=== PATIENT | female | born 1995 | race Caucasian/White ===

== ENCOUNTER 2017-08-05 02:20 | Emergency (ER) | payer OTHER ==
[~2017-08-05] VITALS: Ht 162.6 cm; Wt 61.0 kg
[2017-08-05 02:25] VITALS: Ht 162.6 cm; Wt 61.0 kg
[2017-08-05] MEDS ORDERED: CEPHALEXIN 500 MG CAP PO STA (02:51)
[2017-08-05] MEDS ORDERED: HYDROCODONE/APAP (5/325) TAB PO STA (02:51)
[2017-08-05] MEDS ORDERED: TRIMETHOPRIM/SULFAMETHOX (DS) TAB PO STA (02:51)
[2017-08-05] MEDS ORDERED: CEPH-443 PO (02:53)
[2017-08-05] MEDS ORDERED: ACET325T33 PO (02:53)
[2017-08-05] MEDS ORDERED: SULF1TAB31 PO (02:53)
--- NOTE | 2017-08-05 03:08 | ERD ---
ER Documentation Chief Complaint Date/Time DATE: 08/05/17 TIME: 03:03 Chief Complaint facial abscess x 2 days HPI 22-year-old homeless female presents with a painful lesion on her right mandibular region for the past 2 days status post skin popping. States moderate in severity. Denies fever ROS All systems reviewed and are negative except as per history of present illness. Medications Home Meds Active Scripts Acetaminophen* (Tylenol*) 325 Mg Tablet, 2 TAB PO Q4 Y for PAIN AND OR ELEVATED TEMP, #30 TAB Prov:KRISTA ORR PA-C 08/05/17 Sulfamethoxazole/Trimethoprim* (Bactrim Ds* Tablet) 1 Each Tablet, 1 TAB PO BID , #20 TAB Prov:KRISTA ORR PA-C 08/05/17 Cephalexin* (Keflex*) 500 Mg Capsule, 500 MG PO QID for 10 Days, CAP Prov:KRISTA ORR PA-C 08/05/17 Allergies Allergies: Coded Allergies: No Known Allergy (Unverified , 08/05/17) PMhx/Soc Medical and Surgical Hx: pt denies Medical Hx, pt denies Surgical Hx History of Surgery: No Anesthesia Reaction: No Hx Neurological Disorder: No Hx Respiratory Disorders: No Hx Cardiac Disorders: No Hx Psychiatric Problems: No Hx Miscellaneous Medical Probl: No Hx Alcohol Use: No Hx Substance Use: Yes (heroin) Hx Tobacco Use: Yes Smoking Status: Current every day smoker Physical Exam Vitals Vital Signs Date Time Temp Pulse Resp B/P Pulse Ox O2 Delivery O2 Flow Rate FiO2 08/05/17 02:25 98.8 99 20 144/79 98 Physical Exam Const: Well-developed well-nourished no acute distress Head: Atraumatic Eyes: Normal Conjunctiva ENT: Normal External Ears, Nose and Mouth. Neck: Full range of motion..~ No meningismus. Resp: Clear to auscultation bilaterally Cardio: Regular rate and rhythm, no murmurs Abd: Soft, non tender, non distended. Normal bowel sounds Skin: 2x2cm granulated healing ulcer on right mandibular region Back: No midline or flank tenderness Ext: No cyanosis, or edema Neur: Awake and alert Psych: Normal Mood and Affect Results 24 hrs Current Medications Medications (Trade) Dose Ordered Sig/Angela Route PRN Reason Start Time Stop Time Status Last Admin Dose Admin Cephalexin (Keflex) 500 mg ONCE STAT PO 08/05/17 02:51 08/05/17 02:53 DC Trimethoprim/ Sulfamethoxazole (Bactrim (Ds)) 1 tab ONCE STAT PO 08/05/17 02:51 08/05/17 02:53 DC Acetaminophen/ Hydrocodone Bitart ([place] (5/325)) 2 tab ONCE STAT PO 08/05/17 02:51 08/05/17 02:53 DC Procedures/MDM This is a 22-year-old homeless female presenting to the emergency department with an abscess on her right mandibular region that appears to already have been draining and resolving. There was no evidence of deep space infection, no evidence of cellulitis. Patient is given prescription for Keflex and Bactrim, first dose given in the ED. I discussed with her to return to the ER for any worsening sinus nose. Discussed to return for wound check. She understands and agrees with this plan Departure Diagnosis: Primary Impression: Abscess Condition: Stable Patient Instructions: Abscess, Antiobiotic Treatment Only, Dental Pain Referrals: [facility] YOU HAVE RECEIVED A MEDICAL SCREENING EXAM AND THE RESULTS INDICATE THAT YOU DO NOT HAVE A CONDITION THAT REQUIRES URGENT TREATMENT IN THE EMERGENCY DEPARTMENT. FURTHER EVALUATION AND TREATMENT OF YOUR CONDITION CAN WAIT UNTIL YOU ARE SEEN IN YOUR DOCTORS OFFICE WITHIN THE NEXT 1-2 DAYS. IT IS YOUR RESPONSIBILITY TO MAKE AN APPOINTMENT FOR FOLOW-UP CARE. IF YOU HAVE A PRIMARY DOCTOR --you should call your primary doctor and schedule an appointment IF YOU DO NOT HAVE A PRIMARY DOCTOR YOU CAN CALL OUR PHYSICIAN REFERRAL HOTLINE AT IF YOU CAN NOT AFFORD TO SEE A PHYSICIAN YOU CAN CHOSE FROM THE FOLLOWING [facility] [id number] [facility] [address] [facility] [address] [facility] [address] [facility] [place] [address] [facility]. [facility]. [address] [facility] [place] ([facility] walk in clinic) Additional Instructions: FOLLOW UP WITH YOUR PRIMARY CARE PHYSICIAN TOMORROW.Return to this facility if you are not improving as expected. Take all medicines as directed. Return to this facility if you are not improving as expected. KRISTA ORR PA-C Aug 05, 2017 03:08
== END 2017-08-05 03:20 | disposition home or self-care (01) ==
LOC: FTE 02:20
DX: L02.01 Cutaneous abscess of face (principal); F17.210 Nicotine dependence, cigarettes, uncomplicated
CPT/HCPCS: Z7502; Z7610; 99284

== ENCOUNTER 2017-12-02 05:50 | Emergency (ER) | END 2017-12-02 08:00 | disposition home or self-care (01) ==

== ENCOUNTER 2017-12-03 04:12 | Emergency (ER) | END 2017-12-03 05:04 | disposition left against medical advice (07) ==

== ENCOUNTER 2017-12-03 05:12 | Emergency (ER) | END 2017-12-03 10:50 | disposition home or self-care (01) ==